=== PATIENT | female | born 1960 | race Caucasian/White ===

== ENCOUNTER 2017-03-25 16:25 | Emergency (ER) | payer SELFPAY ==
--- NOTE | 2017-03-25 17:11 | RAD ---
PA AND LATERAL CHEST X-RAY 03/25/17 HISTORY: Cough. COMPARISON: None available. FINDINGS: The cardiac silhouette and pulmonary vasculature are within normal limits. The lungs are clear. Mild degenerative changes are seen in the spine. IMPRESSION: No acute cardiopulmonary process. POS: [facility]
[2017-03-25] MEDS ORDERED: Ibuprofen 200 MG TAB ONE (17:47)
== END 2017-03-25 18:36 | disposition home or self-care (01) ==
LOC: ERS 16:25
DX: J06.9 Acute upper respiratory infection, unspecified (principal); F32.9 Major depressive disorder, single episode, unspecified; Z87.891 Personal history of nicotine dependence
CPT/HCPCS: 71046; 94640; J7620